=== PATIENT | male | born 1965 | race Two or more races ===

== ENCOUNTER 2020-03-15 13:33 | Emergency (ER) | payer MEDICARE, MEDICAID, SELFPAY ==
[2020-03-15 15:25] VITALS: BP 160/78; PULSE 80; RESP 16; TEMP 36.5; O2SAT 98; BMI 23.0
--- NOTE | 2020-03-15 17:03 | ED.SKABFB ---
HPI - Skin/Abscess/Foreign Bdy General Chief complaint: Skin/Abscess/Foreign Body Stated complaint: Rash Source: patient Mode of arrival: ambulatory Limitations: no limitations History of Present Illness HPI narrative: patient presents to ED for right-sided torso rash that itches and burning for the past 3 days. Patient states no fever or chills. MD complaint: rash Related Data Previous Rx's Medication Instructions Recorded naproxen 500 mg PO BID PRN #20 tab 03/15/20 valacyclovir 1,000 mg PO TID #21 tab 03/15/20 Allergies Allergy/AdvReac Type Severity Reaction Status Date / Time No Known Allergies Allergy Unverified 12/31/19 15:14 [No Known Allergies*] Review of Systems Review of Systems: Yes all other systems are reviewed and are negative Constitutional: Constitutional: Reports as per HPI and Reports no additional constitutional complaints Eyes: Eyes: Reports as per HPI and Reports no additional eye complaints ENT: Reports system reviewed and no additional complaints, except as documented and Reports as per HPI Cardiovascular: Cardiovascular: Reports as per HPI and Reports no additional cardiovascular complaints Respiratory: Respiratory: Reports as per HPI Gastrointestinal: Gastrointestinal: Reports as per HPI and Reports no additional gastrointestinal complaints Genitourinary: Genitourinary: Reports no additional male genitourinary complaints and Reports as per HPI Musculoskeletal: Musculoskeletal: Reports no additional musculoskeletal complaints and Reports as per HPI Neurologic: Reports system reviewed and no additional complaints, except as documented and Reports as per HPI Psychiatric: Psychiatric: Reports no additional psychiatric complaints and Reports as per HPI PMF Past Medical History Medical History No known health problems Social History Social History Alcohol intake: never Smoked in Last 30 Days: No Use of substances other than those prescribed or required for medical reasons: No Advance Directives: No Advance Directives Information Provided: Yes Physical Exam Vital Signs: Vital Signs: Last Vital Signs Temp 97.7 F 03/15/20 15:25 Pulse 80 03/15/20 15:25 Resp 16 03/15/20 15:25 BP 160/78 H 03/15/20 15:25 Pulse Ox 98 03/15/20 15:25 Body Mass Index 23.0 Const: General: cooperative, healthy appearing, comfortable, no acute distress, well developed and alert HENMT: Other: Face, nose, and ears negative for any lesions. Head: Yes normal to inspection and Yes No palpable skull fracture present Eyes: General: appearance normal, both eyes and all related structures Neck: Neck: Yes normal visual inspection, Yes full ROM, Yes no lymphadenopathy, Yes no meningeal signs, Yes trachea midline, Yes supple and No tender Chest: Other: only Right side of upper torso positive for vesicular shingles like lesions Chest palpation & inspection: normal inspection of the chest, normal palpation of entire chest wall and no localized rib tenderness Resp: Effort & Inspection: normal respiratory effort and able to speak in complete sentences Auscultation: clear to auscultation bilaterally Cardio: Jugular venous distension: no JVD Heart sounds: S1 normal heart sound present and S2 normal heart sound present GI: Inspection: Yes normal to inspection and No abdominal wall ecchymosis Palpation (GI): Soft to palpation, not firm, nontender, no guarding and not rigid : General: No CVA tenderness and Yes no CVA tenderness Back/Spine/Pelvis: Other: positive vesiuclar shingle like lesions on Right side of back onlly Back: no CVA tenderness, No CVA tenderness and No back tenderness Skin: Other: shingles Neuro: General: no meningeal signs Course Course Course Narrative: history physical exam indicate shingles. Reevaluation(s) Reevaluation #1: Will discharge with antiviral. Time: 17:07 MDM - Skin/Abscess/Foreign Bdy MDM Narrative Medical decision making narrative: shingles Discharge Plan Discharge Clinical Impression: Shingles Patient Disposition: Home, Self-Care Instructions: Shingles (ED) Additional Instructions: return to the ED for worsening rash, lesions on face, headache, neck stiffness, fever, chills, lesions in ear, or any other concerning symptoms. Prescriptions: New valacyclovir 1 gram tablet 1,000 mg PO TID Qty: 21 RF: 0 naproxen 500 mg tablet 500 mg PO BID PRN (Reason: pain) Qty: 20 RF: 0 Referrals: Marika Ramirez MD [Primary Care Provider] - 2 days (Shingles) Interventions: ED Discharge Assessment Last Done: 03/15/20 17:17 Discharge Date/Time: 03/15/20 17:05 Print Language: Montserratian
== END 2020-03-15 17:05 | disposition home or self-care (01) ==
PROVIDERS: Emergency Provider Emergency Medicine Emergency Medical Services; PCP Internal Medicine
DX: B02.9 Zoster without complications (principal)
CPT/HCPCS: 99283; 99284

== ENCOUNTER 2021-12-27 07:58 | Outpatient (REF) | payer OTHER, SELFPAY ==
[2021-12-27 09:43] LABS: Alanine Aminotransferase 36 U/L (0-40); Albumin Level 4.3 g/dL (3.5-5.0); Alkaline Phosphatase 93 U/L (39-117); Anion Gap 15 (12-20); Aspartate Amino Transferase 21 U/L (5-37); Bilirubin Total 0.5 mg/dL (0.0-1.0); Blood Urea Nitrogen 18 mg/dL (9-16); Calcium 9.4 mg/dL (8.4-10.2); Carbon Dioxide 26 mmol/L (22-29); Chloride 103 mmol/L (96-108); Cholesterol 325 mg/dL; Estimated Glomerular Filt Rate > 60; Glucose Fasting 102 mg/dL (60-99); HDL Cholesterol 42 mg/dL; Potassium 4.4 mmol/L (3.3-5.1); Sodium 140 mmol/L (135-145); Total Protein 7.5 g/dL (6.5-8.0); Triglycerides 536 mg/dL
[2021-12-27 09:51] LABS: Thyroid Stimulating Hormone 0.51 uIU/mL (0.32-4.0); Vitamin D 25-OH Total 32.5 ng/mL (>30)
== END 2021-12-27 07:59 | disposition home or self-care (01) ==
LOC: HO.LAB 07:58
PROVIDERS: PCP Internal Medicine; Visit Provider Internal Medicine
DX: E78.2 Mixed hyperlipidemia (principal); E78.5 Hyperlipidemia, unspecified; E55.9 Vitamin D deficiency, unspecified; E03.9 Hypothyroidism, unspecified
CPT/HCPCS: 36415; 80053; 80061; 82306; 84443

== ENCOUNTER 2023-04-11 12:41 | Outpatient (AMB) | payer MEDICARE, MEDICAID, SELFPAY ==
--- NOTE | 2023-04-11 12:42 | A.OFFPC_ITS ---
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 Reporting Advisor Required: No Accompanied by: Self / Same As Patient Allergies No Known Allergies [No Known Allergies*] Allergy (Verified 04/11/23 12:52) Medication List - Last Reconciled 04/11/23 by Marika Horner MD albuterol sulfate 90 mcg/actuation 2 puffs inhalation Q6H PRN 30 days fenofibrate 54 mg PO DAILY 90 days levothyroxine 75 mcg PO DAILY naproxen 500 mg PO BID PRN 30 days rosuvastatin 20 mg PO DAILY 90 days zolpidem 5 mg PO BEDTIME PRN 30 days Tobacco use date assessed: 04/11/23 Dental Screening Dental Screen Date: 04/11/23 Did you have a dental visit in the last 12 months?: No Did you have a dental problem in the last 6 months where you did not have access to dental care?: No Was dental information given to patient?: Patient has dentist HPI HPI Comments History of Present Illness Details This is a 58-year-old male that comes for his physical exam. Compliant with medications. Has never had a colonoscopy. No family history of colon cancer. No abdominal complaints. Willing to do Cologuard. [facility] Medical History Back pain without radiation Insomnia due to psychological stress Mild asthma Mixed hyperlipidemia Hypothyroidism Surgical History No pertinent past surgical history Family History Mother High blood pressure Father AD (Alzheimer's disease) Social History (Updated 04/11/23 @ 12:55 by Marika Horner MD) Housing: Apartment Alcohol intake: current Alcohol intake frequency: a few times a month Alcohol type: beer and hard liquor Patient Tobacco Use Status: Former Tobacco user e-Cigarette/Vaping Use: Never Used Second Hand Smoke Exposure: No Substance Use Type: Marijuana service: No Current occupational status: disabled Cognitive needs: No Hearing needs: No Vision needs: No Questionnaire Thrive Questionnaire Date Thrive assessed: 12/27/21 RORY-7 AMB Questionnaire RORY-7 Date RORY - 7 assessed: 12/27/21 Source: Developed by Drs. Cabrera Burris, Bety Guerra, Vijay Nagel and colleagues, with an educational stiven from [employer]. Review of Systems Const All systems reviewed & are unremarkable except as noted in HPI and below Eyes Reports no additional complaints, Denies change in vision and Denies other visual disturbances Card Denies chest pain at rest, Denies chest pain with activity, Denies edema, Denies irregular heart rhythm, Denies claudication, Denies dyspnea, Denies dyspnea on exertion, Denies orthopnea, Denies paroxysmal nocturnal dyspnea and Denies slow heart rate Resp Denies cough, Denies dyspnea and Denies dyspnea on exertion GI Denies abdominal pain, Denies change in bowel habits, Denies excessive flatus, Denies nausea and Denies vomiting Denies urinary hesitancy, Denies urinary incontinence and Denies urinary urgency Musc Denies abnormal gait, Denies atrophy, Denies deformity and Denies limited range of motion Skin/Breast Denies bleeding lesions, Denies changing lesions and Denies rash Neuro Denies abnormal gait, Denies behavioral changes, Denies confusion and Denies lack of coordination Psych Denies behavioral changes and Denies confusion Physical exam (Primary Care) Vital Signs: Last Vital Signs BP 112/80 04/11/23 12:43 BMI result Body Mass Index 25.7 Tobacco/Smoking Status: Tobacco use Status Tobacco use date assessed 04/11/23 04/11/23 12:46 Patient Tobacco Use Status Never used Tobacco 04/11/23 12:46 e-Cigarette/Vaping Use Never Used 04/11/23 12:46 Thrive Assessment: Date of Thrive Assessment Date Thrive assessed 12/27/21 04/11/23 12:46 Const General: No confusion Orientation/consciousness: patient oriented x3 and No confusion HENMT Head: Yes normal to inspection, Yes normocephalic and Yes atraumatic Ears: external ears normal Eyes General: appearance normal, both eyes and all related structures Eyelids: Yes eyelids normal Conjunctivae: conjunctivae normal Neck Neck: Yes normal visual inspection and Yes supple Resp Effort & Inspection: normal respiratory effort Auscultation: clear to auscultation bilaterally Cardio Jugular venous distension: no JVD Rate: regular rate Rhythm: regular rhythm Heart sounds: S1 normal heart sound present and S2 normal heart sound present GI Inspection: Yes normal to inspection Palpation (GI): Soft to palpation and nontender Auscultation: normal bowel sounds Skin General skin exam: no rashes or lesions noted Neuro General: patient oriented x3, no focal motor deficits and No confusion Extrem General: Yes full ROM Psych Appearance: grossly normal Office Procedures Flu Questionnaire Does the patient have a severe egg allergy?: No Immunizations flu vacc [id number] 6mos up(PF) 60 mcg(15 mcgx4)/0.5 mL IM syringe Performing Provider: Marika Horner MD Performing Location: [facility] Documented (not given) by: PEGGY Calderón on 04/11/23 12:47 Reason Not Given: Patient Refused Assessment and Plan Assessment & Plan (1) Physical exam: Code(s): Z00.00 - Encounter for general adult medical examination without abnormal findings Plan: Repeat in a year. Orders: Orders Vitamin D 25-OH Total Today E55.9 - Vitamin D deficiency, unspecified Influenza [id number] Immunization Today Z23 - Encounter for immunization Lipid Panel Today E78.5 - Hyperlipidemia, unspecified Comprehensive [place]. Panel Fast Today Z00.00 - Encounter for general adult medical examination without abnormal findings Thyroid Stimulating Hormone Today E03.9 - Hypothyroidism, unspecified Referrals Cologuard Test Z12.11 - Encounter for screening for malignant neoplasm of colon, Z12.12 - Encounter for screening for malignant neoplasm of rectum Medications: Refilled zolpidem 5 mg PO BEDTIME 30 days PRN 30 tabs 0RF sleep Coding Level of Care Code Est Pt Prev Care 40-64y(77471) Diagnoses Physical exam Z00.00 Time Spent (min) 32
[2023-04-11 12:43] VITALS: BP 112/80; BMI 25.7
== END 2023-04-11 13:03 | disposition home or self-care (01) ==
PROVIDERS: Visit Provider Internal Medicine
DX: Z00.00 Encounter for general adult medical examination without abnormal findings (principal); E55.9 Vitamin D deficiency, unspecified
CPT/HCPCS: 99396

== ENCOUNTER 2023-08-08 06:57 | Outpatient (REF) | payer MEDICARE, MEDICAID, SELFPAY ==
[2023-08-08 08:41] LABS: Alanine Aminotransferase 37 U/L (0-40); Albumin Level 4.4 g/dL (3.5-5.0); Alkaline Phosphatase 93 U/L (39-117); Anion Gap 12 (12-20); Aspartate Amino Transferase 20 U/L (5-37); Bilirubin Total 0.5 mg/dL (0.0-1.0); Blood Urea Nitrogen 15 mg/dL (9-16); Calcium 10.2 mg/dL (8.4-10.2); Carbon Dioxide 30 mmol/L (22-29); Chloride 104 mmol/L (96-108); Cholesterol 350 mg/dL (<200); Estimated Glomerular Filt Rate > 60; Glucose Fasting 120 mg/dL (60-99); HDL Cholesterol 42 mg/dL (>40); Sodium 141 mmol/L (135-145); Total Protein 8.1 g/dL (6.5-8.0); Triglycerides 789 mg/dL (<150)
[2023-08-08 08:58] LABS: Thyroid Stimulating Hormone 3.18 uIU/mL (0.32-4.0); Vitamin D 25-OH Total 27.1 ng/mL (>30)
== END 2023-08-08 06:58 | disposition home or self-care (01) ==
LOC: HO.LAB 06:57
PROVIDERS: PCP Internal Medicine; Visit Provider Internal Medicine
DX: Z00.00 Encounter for general adult medical examination without abnormal findings (principal); E03.9 Hypothyroidism, unspecified; E55.9 Vitamin D deficiency, unspecified; E78.5 Hyperlipidemia, unspecified
CPT/HCPCS: 36415; 80053; 80061; 82306; 84443

== ENCOUNTER 2023-08-14 10:30 | Outpatient (AMB) | payer MEDICARE, MEDICAID, SELFPAY ==
[2023-08-14 10:34] VITALS: BP 128/76; BMI 26.2
--- NOTE | 2023-08-14 10:34 | A.OFFPC_ITS ---
Vital Signs 08/14/23 10:34 Height 5 ft 3 in Weight 148 lb BMI 26.2 BP 128/76 Blood Pressure Location Lt brachial Position Sitting Intake Visit Reasons: 4mth f/u Intake Note: Patient here for a 4 month follow up Radiology Receptionist Required: No Accompanied by: Self / Same As Patient Allergies No Known Allergies [No Known Allergies*] Allergy (Verified 08/14/23 10:56) Medication List - Last Reconciled 08/14/23 by Marika Horner MD albuterol sulfate 90 mcg/actuation 2 puffs inhalation Q6H PRN 30 days fenofibrate 54 mg PO DAILY 90 days levothyroxine 75 mcg PO DAILY naproxen 500 mg PO BID PRN 30 days rosuvastatin 20 mg PO DAILY 90 days zolpidem 5 mg PO BEDTIME PRN 30 days Tobacco use date assessed: 08/14/23 Dental Screening Dental Screen Date: 08/14/23 Did you have a dental visit in the last 12 months?: No Did you have a dental problem in the last 6 months where you did not have access to dental care?: No Was dental information given to patient?: Patient has dentist HPI HPI Comments History of Present Illness Details This is a 58-year-old male with hypothyroidism, mixed hyperlipidemia, insomnia and back pain that comes today for follow-up on recent labs. TSH normal. Cholesterol and triglycerides are very elevated and he has not compliant with medications. I will restart him on fenofibrate and increase statin. Insomnia stable with zolpidem. Back pain well controlled with naproxen as needed. He also has impaired glucose tolerance with an elevated fasting blood glucose but denies any polyuria, polydipsia or unintentional weight loss. He has follow a high cholesterol diet and I recommend to make adjustments in his diet. No chest pain or shortness of breath. [facility] Medical History (Updated 08/14/23 @ 12:23 by Marika Horner MD) Back pain without radiation Insomnia due to psychological stress Mild asthma Mixed hyperlipidemia Hypothyroidism Surgical History No pertinent past surgical history Family History Mother High blood pressure Father AD (Alzheimer's disease) Social History Housing: Apartment Alcohol intake: current Alcohol intake frequency: a few times a month Alcohol type: beer and hard liquor Patient Tobacco Use Status: Former Tobacco user e-Cigarette/Vaping Use: Never Used Second Hand Smoke Exposure: No Substance Use Type: Marijuana service: No Current occupational status: disabled Cognitive needs: No Hearing needs: No Vision needs: No Questionnaire PHQ-9 Over the last 2 weeks, how often have you been bothered by any of the following problems? 1. Little interest or pleasure in doing things: not at all 2. Feeling down, depressed, or hopeless: several days 3. Trouble falling or staying asleep, or sleeping too much: not at all 4. Feeling tired or having little energy: not at all 5. Poor appetite or overeating: several days 6. Feeling bad about yourself - or that you are a failure or have let yourself or your family down: not at all 7. Trouble concentrating on things, such as reading the newspaper or watching television: not at all 8. Moving or speaking so slowly that other people could have noticed. Or the opposite - being so fidgety or restless that you have been moving around a lot more than usual: not at all 9. Thoughts that you would be better off or of hurting yourself in some way: not at all Total score: 2 Source: Developed by Drs. Cabrera Burris, Bety Guerra, Vijay Nagel and colleagues, with an educational stiven from [employer]. Thrive Questionnaire Date Thrive assessed: 08/14/23 I am a: Patient What is your living situation today?: I have a steady place to live Within the past 12 months, did the food you bought not last and you didn't have the money to get more?: Never true Within the past 12 months, did you worry whether your food would run out before you got money to buy more?: Never true Do you have trouble paying for medicines?: No Do you have trouble getting transportation to medical appointments?: No Do you have trouble paying your heating and electricity bill?: No Do you have trouble taking care of your child, family member or friend?: No Do you have trouble with day-to-day activities such as bathing, preparing meals, shopping, managing finances, etc.?: No Are you currently unemployed and looking for a job?: No Are you interested in more education?: No Please select the resources that you would like help with: None Currently or been in a relationship where the following occur: no concerns reported THRIVE Score: 0 AUDIT C Alcohol Use Questionnaire (AUDIT-C) 1. How often do you have a drink containing alcohol?: Monthly or less 2. How many drinks containing alcohol do you have on a typical day when you are drinking?: 1 or 2 3. How often do you have six or more drinks on one occasion?: Never Total Score: 1 RORY-7 AMB Questionnaire RORY-7 Date RORY - 7 assessed: 08/14/23 Feeling nervous, anxious, or on edge: 1 = Several days Not being able to stop or control worryin = Not at all Worrying too much about different things: 0 = Not at all Trouble relaxin = Not at all Being so restless that it is hard to sit still: 0 = Not at all Becoming easily annoyed or irritable: 0 = Not at all Feeling afraid as if something awful might happen: 0 = Not at all Total RORY-7 score (0-4 normal; 5-9 mild; 10-14 moderate; 15-21 severe): 1 Source: Developed by Drs. Cabrera Burris, Bety Guerra, Vijay Nagel and colleagues, with an educational stiven from [employer]. Review of Systems Const All systems reviewed & are unremarkable except as noted in HPI and below Eyes Reports no additional complaints, Denies change in vision and Denies other visual disturbances Card Denies chest pain at rest, Denies chest pain with activity, Denies edema, Denies irregular heart rhythm, Denies claudication, Denies dyspnea, Denies dyspnea on exertion, Denies orthopnea, Denies paroxysmal nocturnal dyspnea and Denies slow heart rate Resp Denies cough, Denies dyspnea and Denies dyspnea on exertion GI Denies abdominal pain, Denies change in bowel habits, Denies excessive flatus, Denies nausea and Denies vomiting Denies urinary hesitancy, Denies urinary incontinence and Denies urinary urgency Physical exam (Primary Care) Vital Signs: Last Vital Signs BP 128/76 08/14/23 10:34 BMI result Body Mass Index 26.2 Tobacco/Smoking Status: Tobacco use Status Tobacco use date assessed 08/14/23 08/14/23 10:42 Patient Tobacco Use Status Former Tobacco user 08/14/23 10:42 e-Cigarette/Vaping Use Never Used 08/14/23 10:42 PHQ-9: PHQ-9 Score PHQ-9: Total score 2 08/14/23 10:59 Thrive Assessment: Date of Thrive Assessment Date Thrive assessed 08/14/23 08/14/23 10:42 Currently or been in a relationship where the following occur: no concerns reported Resp Effort & Inspection: normal respiratory effort Auscultation: clear to auscultation bilaterally Cardio Jugular venous distension: no JVD Rate: regular rate Rhythm: regular rhythm Heart sounds: S1 normal heart sound present and S2 normal heart sound present Extrem General: Yes full ROM Assessment and Plan Assessment & Plan (1) Hypothyroidism: Code(s): E03.9 - Hypothyroidism, unspecified Qualifiers: Hypothyroidism type: unspecified Qualified Code(s): E03.9 - Hypothyroidism, unspecified Plan: Continue levothyroxine. Monitor TSH. (2) Mixed hyperlipidemia: Code(s): E78.2 - Mixed hyperlipidemia Plan: Change rosuvastatin 20 mg to atorvastatin 80 mg. Increase fenofibrate. Start low-cholesterol diet. (3) Back pain without radiation: Code(s): M54.9 - Dorsalgia, unspecified Plan: Continue naproxen as needed. (4) Insomnia due to psychological stress: Code(s): F51.02 - Adjustment insomnia Plan: Continue zolpidem as needed. (5) Impaired glucose tolerance: Code(s): R73.02 - Impaired glucose tolerance (oral) Plan: Repeat fasting blood glucose. Start a low-carbohydrate diet. Orders: Orders Lipid Panel 4 Months E78.5 - Hyperlipidemia, unspecified Thyroid Stimulating Hormone 4 Months E03.9 - Hypothyroidism, unspecified Comprehensive [place]. Panel Fast 4 Months E78.2 - Mixed hyperlipidemia Medications: New fenofibrate 160 mg PO DAILY 90 tabs 1RF 90 days E78.2 - Mixed hyperlipidemia atorvastatin 80 mg PO BEDTIME 90 tabs 1RF 90 days E78.2 - Mixed hyperlipidemia Refilled zolpidem 5 mg PO BEDTIME PRN 30 tabs 0RF sleep 30 days naproxen 500 mg PO BID PRN 60 tabs 1RF pain 30 days Discontinued fenofibrate Discontinued Reason: Patient Completed Course 54 mg PO DAILY 90 days 90 tabs 2RF Coding Level of Care Code Est Pt Level 4 (44868) Diagnoses Hypothyroidism, unspecified type E03.9 Hypothyroidism type: unspecified Mixed hyperlipidemia E78.2 Back pain without radiation M54.9 Insomnia due to psychological stress F51.02 Impaired glucose tolerance R73.02 Time Spent (min) 25
== END 2023-08-14 11:08 | disposition home or self-care (01) ==
LOC: HO.HMGH 10:30
PROVIDERS: PCP Internal Medicine; Visit Provider Internal Medicine
DX: E03.9 Hypothyroidism, unspecified (principal); E78.2 Mixed hyperlipidemia; M54.9 Dorsalgia, unspecified; F51.02 Adjustment insomnia; R73.02 Impaired glucose tolerance (oral)
CPT/HCPCS: 99214

== ENCOUNTER 2023-12-31 10:02 | Outpatient (AMB) | payer MEDICARE, MEDICAID, SELFPAY ==
--- NOTE | 2023-12-31 10:05 | A.OFFPC_ITS ---
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 Required: No Accompanied by: Self / Same As Patient Allergies No Known Allergies [No Known Allergies*] Allergy (Verified 12/31/23 10:14) Medication List - Last Reconciled 12/31/23 by Marika Horner MD albuterol sulfate 90 mcg/actuation 2 puffs inhalation Q6H PRN 30 days levothyroxine 75 mcg PO DAILY naproxen 500 mg PO BID PRN 30 days zolpidem 5 mg PO BEDTIME PRN 30 days Tobacco use date assessed: 08/14/23 Dental Screening Dental Screen Date: 08/14/23 HPI HPI Comments History of Present Illness Details This is a 58-year-old male with hypothyroidism, mild asthma, impaired glucose tolerance and insomnia that comes today for follow-up on his conditions. TSH will be order to be done today. He use rescue inhaler less than once a month. Has elevated fasting blood glucose but denies any polyuria, polydipsia or unintentional weight loss. Insomnia stable with zolpidem as needed. Patient aware that zolpidem can cause addiction and sedation. No chest pain or shortness on breath. [facility] Medical History Back pain without radiation Insomnia due to psychological stress Mild asthma Mixed hyperlipidemia Hypothyroidism Surgical History No pertinent past surgical history Family History Mother High blood pressure Father AD (Alzheimer's disease) Social History Housing: Apartment Alcohol intake: current Alcohol intake frequency: a few times a month Alcohol type: beer and hard liquor Patient Tobacco Use Status: Former Tobacco user e-Cigarette/Vaping Use: Never Used Second Hand Smoke Exposure: No Substance Use Type: Marijuana service: No Current occupational status: disabled Cognitive needs: No Hearing needs: No Vision needs: No Questionnaire PHQ-9 Over the last 2 weeks, how often have you been bothered by any of the following problems? 1. Little interest or pleasure in doing things: not at all 2. Feeling down, depressed, or hopeless: several days 3. Trouble falling or staying asleep, or sleeping too much: not at all 4. Feeling tired or having little energy: not at all 5. Poor appetite or overeating: several days 6. Feeling bad about yourself - or that you are a failure or have let yourself or your family down: not at all 7. Trouble concentrating on things, such as reading the newspaper or watching television: not at all 8. Moving or speaking so slowly that other people could have noticed. Or the opposite - being so fidgety or restless that you have been moving around a lot more than usual: not at all 9. Thoughts that you would be better off or of hurting yourself in some way: not at all Total score: 2 Depression Screening Interpretation: Negative Depression Screening Done: Yes 22350 - PHQ-9 Billing: Yes Source: Developed by Drs. Cabrera Burris, Bety Guerra, Vijay Nagel and colleagues, with an educational stiven from [employer]. Thrive Questionnaire Date Thrive assessed: 12/31/23 I am a: Patient What is your living situation today?: I have a steady place to live Within the past 12 months, did the food you bought not last and you didn't have the money to get more?: Never true Within the past 12 months, did you worry whether your food would run out before you got money to buy more?: Never true Do you have trouble paying for medicines?: No Do you have trouble getting transportation to medical appointments?: No Do you have trouble paying your heating and electricity bill?: No Do you have trouble taking care of your child, family member or friend?: No Do you have trouble with day-to-day activities such as bathing, preparing meals, shopping, managing finances, etc.?: No Are you currently unemployed and looking for a job?: No Are you interested in more education?: No Please select the resources that you would like help with: None Currently or been in a relationship where the following occur: No concerns reported THRIVE Score: 0 AUDIT C Alcohol Use Questionnaire (AUDIT-C) 1. How often do you have a drink containing alcohol?: Monthly or less 2. How many drinks containing alcohol do you have on a typical day when you are drinking?: 1 or 2 3. How often do you have six or more drinks on one occasion?: Never Total Score: 1 Score Reviewed/Action Taken: No RORY-7 AMB Questionnaire RORY-7 Date RORY - 7 assessed: 12/31/23 Feeling nervous, anxious, or on edge: 1 = Several days Not being able to stop or control worryin = Not at all Worrying too much about different things: 0 = Not at all Trouble relaxin = Not at all Being so restless that it is hard to sit still: 0 = Not at all Becoming easily annoyed or irritable: 0 = Not at all Feeling afraid as if something awful might happen: 0 = Not at all Total RORY-7 score (0-4 normal; 5-9 mild; 10-14 moderate; 15-21 severe): 1 Source: Developed by Drs. Cabrera Burris, Bety Guerra, Vijay Nagel and colleagues, with an educational stiven from [employer]. RORY-7 Assessment Billing RORY-7 Assessment Tool: RORY-7 Assessment 30368 Review of Systems Const All systems reviewed & are unremarkable except as noted in HPI and below Card Denies chest pain at rest, Denies chest pain with activity, Denies edema, Denies irregular heart rhythm, Denies claudication, Denies dyspnea, Denies dyspnea on exertion, Denies orthopnea, Denies paroxysmal nocturnal dyspnea and Denies slow heart rate Resp Denies cough, Denies dyspnea and Denies dyspnea on exertion GI Denies abdominal pain, Denies change in bowel habits, Denies excessive flatus, Denies nausea and Denies vomiting Physical exam (Primary Care) Vital Signs: Last Vital Signs BP 136/82 12/31/23 10:08 BMI result Body Mass Index 26.0 Tobacco/Smoking Status: Tobacco use Status Tobacco use date assessed 08/14/23 12/31/23 10:12 Patient Tobacco Use Status Former Tobacco user 12/31/23 10:12 e-Cigarette/Vaping Use Never Used 12/31/23 10:12 PHQ-9: PHQ-9 Score PHQ-9: Total score 2 12/31/23 10:12 Depression Screening Interpretation: Negative Thrive Assessment: Date of Thrive Assessment Date Thrive assessed 12/31/23 12/31/23 10:12 Currently or been in a relationship where the following occur: No concerns reported Resp Effort & Inspection: normal respiratory effort Auscultation: clear to auscultation bilaterally Cardio Jugular venous distension: no JVD Rate: regular rate Rhythm: regular rhythm Heart sounds: S1 normal heart sound present and S2 normal heart sound present Extrem General: Yes full ROM Assessment and Plan Assessment & Plan (1) Hypothyroidism: Code(s): E03.9 - Hypothyroidism, unspecified Qualifiers: Hypothyroidism type: unspecified Qualified Code(s): E03.9 - Hypothyroidism, unspecified Plan: Continue levothyroxine. Monitor TSH. (2) Mild asthma: Code(s): J45.909 - Unspecified asthma, uncomplicated Qualifiers: Asthma persistence: persistent Asthma complication type: uncomplicated Qualified Code(s): J45.30 - Mild persistent asthma, uncomplicated Plan: Use rescue inhaler as needed. (3) Insomnia due to psychological stress: Code(s): F51.02 - Adjustment insomnia Plan: Continue zolpidem as needed. (4) Impaired glucose tolerance: Code(s): R73.02 - Impaired glucose tolerance (oral) Plan: Advised to follow a low-carbohydrate diet. Orders: Orders Thyroid Stimulating Hormone Today E03.9 - Hypothyroidism, unspecified Coding Level of Care Code Est Pt Level 4 (46895) Complex EM visit Add On G2211 Diagnoses Hypothyroidism, unspecified type E03.9 Hypothyroidism type: unspecified Mild persistent asthma without complication J45.30 Asthma persistence: persistent Asthma complication type: uncomplicated Insomnia due to psychological stress F51.02 Impaired glucose tolerance R73.02 Additional Codes RORY-7 Assessment Billing - RORY-7 Assessment Tool: RORY-7 Assessment 38013 ([id number]) Time Spent (min) 20
[2023-12-31 10:08] VITALS: BP 136/82; BMI 26.0
== END 2023-12-31 10:26 | disposition home or self-care (01) ==
PROVIDERS: PCP Internal Medicine; Visit Provider Internal Medicine
DX: E03.9 Hypothyroidism, unspecified (principal); J45.30 Mild persistent asthma, uncomplicated; F51.02 Adjustment insomnia; R73.02 Impaired glucose tolerance (oral)

== ENCOUNTER → 2023-12-31 10:02 | Outpatient (BNVA) | payer MEDICARE, MEDICAID, SELFPAY | PROVIDERS: PCP Internal Medicine; Visit Provider Internal Medicine | DX: E03.9 Hypothyroidism, unspecified (principal); J45.30 Mild persistent asthma, uncomplicated; F51.02 Adjustment insomnia; R73.02 Impaired glucose tolerance (oral) | CPT/HCPCS: 96127; 99212 ==

== ENCOUNTER 2024-05-11 23:35 | Emergency (ER) | payer MEDICARE, MEDICAID, SELFPAY ==
--- NOTE | ~2024-05-11 | XR_ITS ---
CLINICAL HISTORY: asthma sob EXAM: Two views of the chest. COMPARISON: None FINDINGS: Normal cardiac, mediastinal, and hilar contours. Normal heart size. No pleural effusion or pneumothorax. Lungs are clear. No acute bone finding. IMPRESSION: 1. No acute cardiopulmonary process demonstrated. This document has been electronically signed by: Brian Kruger MD on 05/12/2024 00:06:32
[2024-05-11 23:36] VITALS: BP 163/91; PULSE 85; RESP 20; TEMP 36.6; O2SAT 97; BMI 24.1
[2024-05-12 00:26] LABS: Influenza A PCR POSITIVE (Negative); Influenza B PCR NEGATIVE (Negative); Resp Syncy Virus RNA Qual PCR NEGATIVE (Negative); SARS COV2 PCR INHOUSE NEGATIVE (Negative)
--- NOTE | 2024-05-12 03:08 | ED.ASTHMA ---
HPI - Asthma General Chief Complaint: Asthma Stated Complaint: SoB, asthmatic Time Seen by Provider: 05/12/24 02:48 Source: patient Mode of arrival: ambulatory Limitations: no limitations History of Present Illness ED Provider: DR. Yu HPI Narrative: 59-year-old male history of asthma came in for evaluation of SOB and coughing patient recently was diagnosed with the flu, returned today for increased shortness of breath and wheezing with coughing, no fever, no chills. Related Data Previous Rx's ?Medication ?Instructions ?Recorded naproxen 500 mg tablet 500 mg PO BID PRN pain 30 days #60 08/14/23 tabs levothyroxine 75 mcg tablet 75 mcg PO DAILY #90 tabs 02/26/24 zolpidem 5 mg tablet 5 mg PO BEDTIME PRN sleep 30 days 05/05/24 #30 tabs albuterol sulfate 90 mcg/actuation 2 puff inhalation Q6H PRN 05/06/24 aerosol inhaler shortness of breath or wheezing 30 days #6.7 grams prednisone 20 mg tablet 20 mg PO BID #10 tabs 05/12/24 Allergies Allergy/AdvReac Type Severity Reaction Status Date / Time No Known Allergies Allergy Verified 05/11/24 23:39 [No Known Allergies*] Review of Systems Review of Systems: All other systems are reviewed and are negative Constitutional: Reports as per HPI and Reports no additional constitutional complaints Eyes: Reports as per HPI and Reports no additional eye complaints Reports system reviewed and no additional complaints, except as documented Cardiovascular: Reports as per HPI and Reports no additional cardiovascular complaints Respiratory: Reports as per HPI and Reports no additional respiratory complaints Gastrointestinal: Reports as per HPI and Reports no additional gastrointestinal complaints Genitourinary: Reports no additional female genitourinary complaints Musculoskeletal: Reports no additional musculoskeletal complaints Skin/Breast: Reports system reviewed and no additional complaints, except as docu Psychiatric: Reports no additional psychiatric complaints Endocrine: Reports no additional endocrine complaints Hematologic/Lymphatic: Reports no additional hematologic/lymphatic complaints Allergic/Immunologic: Reports no additional allergic/immunologic complaints Reports system reviewed and no additional complaints, except as documented and Reports Abnormal speech present [facility] Past Medical History Medical History Back pain without radiation Insomnia due to psychological stress Mild asthma Mixed hyperlipidemia Hypothyroidism Surgical History No pertinent past surgical history Family History Family History Mother High blood pressure Father AD (Alzheimer's disease) Social History Social History Housing: Apartment Alcohol intake: current Alcohol intake frequency: a few times a month Alcohol type: beer and hard liquor Patient Tobacco Use Status: Former Tobacco user e-Cigarette/Vaping Use: Never Used Second Hand Smoke Exposure: No Substance Use Type: Marijuana Advance Directives: No Advance Directives Information Provided: Yes Do you have a plan to hurt others: No Plan service: No Current occupational status: disabled Cognitive needs: No Hearing needs: No Vision needs: No Physical Exam Vital Signs: Vital Signs: Last Vital Signs Temp 97.9 F 05/11/24 23:36 Pulse 85 05/11/24 23:36 Resp 20 05/11/24 23:36 BP 163/91 H 05/11/24 23:36 Pulse Ox 97 05/11/24 23:36 O2 Del Method Room Air 05/11/24 23:36 BMI result Body Mass Index 24.1 Vital signs have been reviewed and appear to be correct. Blood pressure elevated. Heart rate normal. Respiratory rate normal. Temperature normal. Oxygen saturation normal. Appearance: Alert. Oriented X3. No acute distress. Head: Normal external exam. Normocephalic. Atraumatic. No Mendez signs noted. No raccoon eyes noted Eyes: PERRLA. EOMI. Conjunctiva and sclera normal. Eyelids normal. ENT: TM's Normal. Pharynx normal. Uvula midline. Moist mucous membranes. No trismus noted. No drooling noted. No muffled voice noted. Neck: Normal inspection. Neck supple. FROM. No adenopathy. Thyroid Normal. No meningeal signs. No neck mass noted. CVS: Normal heart rate and rhythm. Heart sound normal. No murmurs noted. Pulses normal throughout. Respiratory: No respiratory distress. Painless inspiration. Breath sounds normal. No wheezes/rales/rhonchi noted. Chest nontender. No accessory muscle usage noted or decreased air movement noted. Abdomen: Soft and nontender. Bowel sounds normal in all 4 quadrants. No distention noted. No organomegaly noted. No visible injury noted. Back: No CVA tenderness. Full range of motion noted. Skin: Skin warm and dry. Normal skin color. Normal skin turgor. No rashes/lesions/lacerations noted. Extremities: No lower extremity edema. Extremities exhibit normal range of motion. Extremities nontender. Neuro: Oriented X 3. Cranial nerve exam: II-XII are grossly intact No motor deficit. No sensory deficit. Reflexes normal. Course Reevaluation(s) Reevaluation #1: Viral bronchitis and wheezing will add prednisone and patient will use his own albuterol inhaler. Patient hemodynamically stable, VSS, no respiratory distress. Time: 03:12 Medical Decision Making Differential Diagnosis Differential Diagnoses: The differential diagnosis associated with the presentation includes ( Pneumonia, pneumothorax, pleural effusion, bronchitis, asthma exacerbation, viral bronchitis.) Admission/Observation Consideration of admission/observation: Escalation of care including admission/observation considered Lab Data MDM Lab Attestation statement: I reviewed the patient's lab results. Labs: Lab Results 05/11/24 Range/Units 23:44 Influenza Type A (PCR) POSITIVE A (Negative) Influenza Type B (PCR) NEGATIVE (Negative) RSV RNA Qual (PCR) NEGATIVE (Negative) SARS-CoV-2 RNA (RT-PCR) NEGATIVE (Negative) Independent Interpretation I performed an independent interpretation of an: Plain X-Ray ( Chest: No acute intrathoracic pathology.) Radiology Impression Discussion of test interpretation with radiology: I have reviewed the radiologist's reading. Discharge Plan Discharge Clinical Impression: Asthma with acute exacerbation, Bronchitis Patient Disposition: Home, Self-Care Instructions: Asthma (ED) Additional Instructions: take the prednisone as prescribed. Use your albuterol inhaler 2 puffs every 4-6 hours if needed for wheezing or shortness of breath. Prescriptions: New prednisone 20 mg tablet 20 mg PO BID Qty: 10 0RF No Action levothyroxine 75 mcg tablet 75 mcg PO DAILY Qty: 90 0RF zolpidem 5 mg tablet 5 mg PO BEDTIME PRN (Reason: sleep) 30 Days Qty: 30 0RF albuterol sulfate 90 mcg/actuation HFA aerosol inhaler 2 puff inhalation Q6H PRN (Reason: shortness of breath or wheezing) 30 Days Qty: 6.7 1RF naproxen 500 mg tablet 500 mg PO BID PRN (Reason: pain) 30 Days Qty: 60 1RF Referrals: Marika Ramirez MD [Primary Care Provider] - Print Language: Barbadian
[2024-05-12 03:30] VITALS: BP 163/91; PULSE 85; RESP 20; TEMP 36.6; O2SAT 97
[2024-05-12] MEDS: predniSONE 20 MG TABLET 40 MG PO (03:42)
== END 2024-05-12 04:16 | disposition home or self-care (01) ==
PROVIDERS: Emergency Provider Emergency Medicine; PCP Internal Medicine
DX: J10.1 Influenza due to other identified influenza virus with other respiratory manifestations (principal); J45.901 Unspecified asthma with (acute) exacerbation; R06.02 Shortness of breath; Z87.891 Personal history of nicotine dependence; F12.90 Cannabis use, unspecified, uncomplicated; Z03.818 Encounter for observation for suspected exposure to other biological agents ruled out
CPT/HCPCS: 0241U; 71046; 99283

== ENCOUNTER → 2024-05-11 23:48 | Outpatient (BNV) | payer MEDICARE, MEDICAID, SELFPAY | PROVIDERS: Visit Provider Radiology Diagnostic Radiology | DX: R06.02 Shortness of breath (principal) | CPT/HCPCS: 71046 ==

== ENCOUNTER 2024-08-31 10:51 | Outpatient (AMB) | payer MEDICARE, MEDICAID, SELFPAY ==
[2024-08-31 10:56] VITALS: BP 146/90; BMI 24.3
--- NOTE | 2024-08-31 10:56 | AM.OFFVISMDC ---
Intake Vital Signs 08/31/24 10:56 Height 5 ft 5 in Weight 146 lb BMI 24.3 BP 146/90 H Blood Pressure Location Lt brachial Position Sitting Intake Visit Reasons: AWV Intake Note: Patient here for an annual wellness visit [place] Aide Required: No Accompanied by: Self / Same As Patient Allergies No Known Allergies [No Known Allergies*] Allergy (Verified 08/31/24 11:16) Medication List - Last Reconciled 08/31/24 by Marika Horner MD albuterol sulfate 90 mcg/actuation 2 puffs inhalation Q6H PRN 30 days levothyroxine 75 mcg PO DAILY naproxen 500 mg PO BID PRN 30 days zolpidem 5 mg PO BEDTIME PRN 30 days HPI HPI Comments History of Present Illness Details The patient is a 59-year-old male presenting for a Medicare wellness exam. He extensively discusses his history of receiving vaccinations, stating he has had a tetanus vaccination in the past but is unable to recall a recent colonoscopy, instead showing preference for a colonoscopy over Cologuard screening due to comfort and familiarity. The patient currently manages his essential hypertension without medication but reports recent levels suggest increased blood pressure control might be required. He has identified his mood as low with an established depression diagnosis corroborated by a recorded PHQ-9 score of 11, linking some emotional difficulties to his child's 15 years ago. He struggles with feelings of air hunger under stress, which may relate to his emotional state. His daily regimen includes levothyroxine, naproxen, and zolpidem, yet lacks any antihypertensives. He confirms he maintains independence in financial matters. - Review of immunization history confirming tetanus vaccination received years ago. - Scheduled colonoscopy for colorectal cancer screening due to lack of prior procedure. - Monitoring of blood pressure with follow-up planned in three weeks. - Reviewed depression-related risk scoring (PHQ-9 score of 11). [facility] Medical History (Updated 08/31/24 @ 12:49 by Marika Horner MD) Back pain without radiation Insomnia due to psychological stress Mild asthma Mixed hyperlipidemia Hypothyroidism Surgical History No pertinent past surgical history Family History Mother High blood pressure Father AD (Alzheimer's disease) Social History Housing: Apartment Alcohol intake: current Alcohol intake frequency: a few times a month Alcohol type: beer and hard liquor Patient Tobacco Use Status: Former Tobacco user e-Cigarette/Vaping Use: Never Used Second Hand Smoke Exposure: No Substance Use Type: Marijuana service: No Current occupational status: disabled Cognitive needs: No Hearing needs: No Vision needs: No Questionnaire Medicare Wellness Checkup What gender do you identify with?: male During the past 4 weeks, how much have you been bothered by emotional problems such as feeling anxious, depressed, irritable, sad or downhearted, and blue?: moderately During the past 4 weeks, has your physical & emotional health limited your social activities with family, friends, neighbors, or groups?: slightly During the past 4 weeks, how much bodily pain have you generally had?: mild pain During the past 4 weeks, was someone available to help you if you needed & wanted help?: yes, a little During the past 4 weeks, what was the hardest physical activity you could do for at least 2 minutes?: moderate Can you get to places out of walking distance without help? (For eg., can you travel alone on buses, taxis or drive your car?): Yes Can you go shopping for groceries or clothes without someone's help?: Yes Can you prepare your own meals?: No Can you do your housework without help?: No Because of any health problems, do you need the help of another person with your personal care needs such as eating, bathing, dressing or getting around the house?: No Can you handle your own money without help?: Yes During the past 4 weeks, how would you rate your health in general?: fair During the past 4 weeks how have things been going for you?: good & bad parts about equal Are you having difficulties driving your car?: no Do you always fasten your seat belt when you are in a car?: yes, usually During past 4 weeks, have you been bothered by the following: never: Falling or dizzy when standing up, Sexual problems?, Trouble eating well?, Teeth or denture problems? and Problems using the telephone? and sometimes: Tiredness or fatigue? Have you fallen 2 or more times in the past year?: No Are you afraid of falling?: No Are you a smoker?: no During the past 4 weeks, how many drinks of wine, beer, or other alcoholic beverages did you have?: 1 drink or less per week Do you exercise for about 20 minutes 3 or more times a week?: no, I usually do not exercise this much Have you been given information to help with the following?: no: Hazards in your house that might hurt you? and no: Keeping track of your medications? How often do you have trouble taking medicines the way you have been told to take them?: I always take medicine as prescribed How confident are you that you can control & manage most of your health problems?: somewhat confident What is your race?: or origin or descent Mini Mental State Exam (MMSE) Orientation What is the (year) (season) (date) (day) (month)?: year, season, date, day and month Where are we (state) (county) (town or city) (hospital) (floor)?: state, county, town or city, hospital/clinic and floor Registration Name of 3 unrelated objects clearly and slowly, then ask patient to repeat all 3 of them. (1st repeat determines score. Make sure they can repeat all three): object 1, object 2 and object 3 Attention & Calculation (CHOOSE ONE) Spell WORLD backwards (DLROW): 5 letters Recall Ask patient to repeat the 3 items from question #3.: object 1, object 2 and object 3 Language Show patient a wristwatch & ask what it is. Repeat for pencil.: watch and pencil Ask the patient to repeat the phrase 'No ifs, ands, or buts' after you.: correct Ask the patient to 'take a piece of paper with their right hand' 'fold paper in half' 'place paper on floor': take paper in right hand, fold paper in half and place paper on floor Print the sentence 'CLOSE YOUR EYES' on a piece. If patient actually closes eyes then score.: followed written direction Give patient a blank piece of paper & ask to write a sentence. Score if it contains a noun & verb.: sentence contains subject and verb Score Score: 29 Activity of Daily Living Bathing - sponge bath, tub bath or shower: receives no assistance (gets in/out by self, if usual bathing means Dressing - getting clothes from closets & drawers, including inner/outer garments & fasteners.: gets clothes & gets completely dressed without help Toileting - going to the 'toilet room' for urine/bowel elimination & cleaning self/arranging clothes: goes to toilet room, cleans self, arranges clothes without help Transfer: moves in & out of bed and chair without help (may use support object) Continence: controls urination/bowel movements completely by self Feeding: feeds self without help Total Score: 0 Information obtained from: patient Using telephone: independent Traveling: independent Shopping: independent Preparing meals: independent Housework: independent Taking medicine: independent Managing money: independent PHQ-9 Over the last 2 weeks, how often have you been bothered by any of the following problems? 1. Little interest or pleasure in doing things: more than half the days 2. Feeling down, depressed, or hopeless: more than half the days 3. Trouble falling or staying asleep, or sleeping too much: nearly every day 4. Feeling tired or having little energy: more than half the days 5. Poor appetite or overeating: not at all 6. Feeling bad about yourself - or that you are a failure or have let yourself or your family down: several days 7. Trouble concentrating on things, such as reading the newspaper or watching television: several days 8. Moving or speaking so slowly that other people could have noticed. Or the opposite - being so fidgety or restless that you have been moving around a lot more than usual: not at all 9. Thoughts that you would be better off or of hurting yourself in some way: not at all Total score: 11 Depression Screening Interpretation: Positive Depression Screening Follow-up: Existing condition and Follow-up Visit Requested Depression Screening Done: Yes 88958 - PHQ-9 Billing: Yes Source: Developed by Drs. Cabrera Burris, Bety Guerra, Vijay Nagel and colleagues, with an educational stiven from [employer]. AUDIT C Alcohol Use Questionnaire (AUDIT-C) 1. How often do you have a drink containing alcohol?: Monthly or less 2. How many drinks containing alcohol do you have on a typical day when you are drinking?: 1 or 2 3. How often do you have six or more drinks on one occasion?: Never Total Score: 1 Score Reviewed/Action Taken: No RORY-7 AMB Questionnaire RORY-7 Date RORY - 7 assessed: 08/31/24 Feeling nervous, anxious, or on edge: 2 = More than half the days Not being able to stop or control worryin = Not at all Worrying too much about different things: 2 = More than half the days Trouble relaxin = Several days Being so restless that it is hard to sit still: 1 = Several days Becoming easily annoyed or irritable: 0 = Not at all Feeling afraid as if something awful might happen: 1 = Several days Total RORY-7 score (0-4 normal; 5-9 mild; 10-14 moderate; 15-21 severe): 7 Source: Developed by Drs. Cabrera Burris, Bety Guerra, Vijay Nagel and colleagues, with an educational stiven from [employer]. RORY-7 Assessment Billing RORY-7 Assessment Tool: RORY-7 Assessment 34713 Thrive Questionnaire Date Thrive assessed: 08/31/24 I am a: Patient What is your living situation today?: I have a steady place to live THRIVE Score: 0 Review of Systems Const All systems reviewed & are unremarkable except as noted in HPI and below Card Denies chest pain at rest, Denies chest pain with activity, Denies edema, Denies irregular heart rhythm, Denies claudication, Denies dyspnea, Denies dyspnea on exertion, Denies orthopnea, Denies paroxysmal nocturnal dyspnea and Denies slow heart rate Resp Denies cough, Denies dyspnea and Denies dyspnea on exertion GI Denies abdominal pain, Denies change in bowel habits, Denies excessive flatus, Denies nausea and Denies vomiting Physical Exam Vital Signs: Last Vital Signs BP 146/90 H 08/31/24 10:56 BMI result Body Mass Index 24.3 Resp Effort & Inspection: normal respiratory effort Auscultation: clear to auscultation bilaterally Cardio Jugular venous distension: no JVD Rate: regular rate Rhythm: regular rhythm Heart sounds: S1 normal heart sound present and S2 normal heart sound present Extrem General: Yes full ROM Assessment & Plan Assessment & Plan (1) Encounter for Medicare annual wellness exam: Code(s): Z00.00 - Encounter for general adult medical examination without abnormal findings (2) Mild major depression: Code(s): F32.0 - Major depressive disorder, single episode, mild Plan The management course involves addressing essential hypertension with blood pressure monitoring and reassessment in three weeks, while the incorporation of antihypertensive medication might be necessary. The patient acknowledged feeling low mood and a PHQ-9 score of 11, for which we talked about his current strategies addressing depression and the potential merit of adding resources like therapy or medication adjustments in future reviews. For preventive care, the patient will have a scheduled colonoscopy for cancer screening. We discussed these plans in detail, obtaining his agreement and consent with full comprehension of the intended health management strategies. Continuing regular follow-ups for depression and blood pressure regulation are essential. Patient was informed and verbally consented to the use of an ambient scribe for clinic note documentation during this visit. We discussed the patient?s diagnoses and health management strategies, focusing particularly on blood pressure control and addressing depression. The patient understands the importance of revisiting his blood pressure readings and agreed to a follow-up in three weeks. For depression, I discussed that strategies such as therapy should be considered if symptoms persist or worsen. We reviewed the importance of preventive measures such as a colonoscopy and ensuring routine health checks. I provided reassurance regarding the streamlined process of these procedures and obtained informed consent for these plans, explaining benefits, possible outcomes, and importance of regular monitoring and follow-up visits. Orders: Referrals Open Access Screening Colonoscopy Referral Z12.12 - Encounter for screening for malignant neoplasm of rectum Medications: New losartan 25 mg PO DAILY 90 tabs 3RF 90 days I10 - Essential (primary) hypertension Patient Instructions: - Monitor blood pressure and return for reassessment in three weeks. - Schedule and prepare for a colonoscopy. - Continue current medications as prescribed. - Follow up on any changes in mood or depressive symptoms, seeking help if needed. - Return for routine follow-up visits to monitor and adjust management of health conditions as necessary. Quality Reporting (2019) Depression/Bipolar (159/160/161/177) PHQ-9: Total score: 11 Coding Level of Care Code Medicare First (G0438) Diagnoses Encounter for Medicare annual wellness exam Z00.00 Mild major depression F32.0 Additional Codes RORY-7 Assessment Billing - RORY-7 Assessment Tool: RORY-7 Assessment 20283 ([id number]) PHQ-9 - 54612 - PHQ-9 Billing: Yes ([id number]) Time Spent (min) 35
== END 2024-08-31 11:33 | disposition home or self-care (01) ==
LOC: HO.HMCH 10:51
PROVIDERS: PCP Internal Medicine; Visit Provider Internal Medicine
DX: Z00.00 Encounter for general adult medical examination without abnormal findings (principal); F32.0 Major depressive disorder, single episode, mild

== ENCOUNTER → 2024-08-31 10:51 | Outpatient (BNVA) | payer MEDICARE, MEDICAID, SELFPAY | PROVIDERS: PCP Internal Medicine; Visit Provider Internal Medicine | DX: Z00.00 Encounter for general adult medical examination without abnormal findings (principal); F32.0 Major depressive disorder, single episode, mild | CPT/HCPCS: 96127 ==

== ENCOUNTER 2025-01-08 08:00 | Outpatient (REF) | payer MEDICARE, MEDICAID, SELFPAY ==
[2025-01-08 10:30] LABS: Alanine Aminotransferase 43 U/L (0-40); Albumin Level 4.5 g/dL (3.5-5.0); Alkaline Phosphatase 92 U/L (39-117); Anion Gap 11 (12-20); Aspartate Amino Transferase 39 U/L (5-37); Blood Urea Nitrogen 17 mg/dL (9-16); Calcium 9.5 mg/dL (8.4-10.2); Carbon Dioxide 30 mmol/L (22-29); Chloride 106 mmol/L (96-108); Cholesterol 340 mg/dL (<200); Estimated Glomerular Filt Rate > 60; HDL Cholesterol 39 mg/dL (>40); Potassium 4.8 mmol/L (3.3-5.1); Sodium 142 mmol/L (135-145); Total Protein 7.6 g/dL (6.5-8.0); Triglycerides 580 mg/dL (<150)
[2025-01-08 10:48] LABS: Thyroid Stimulating Hormone 5.23 uIU/mL (0.32-4.0)
== END 2025-01-08 08:01 | disposition home or self-care (01) ==
LOC: HO.LAB 08:00
PROVIDERS: PCP Internal Medicine; Visit Provider Internal Medicine
DX: R73.02 Impaired glucose tolerance (oral) (principal); E03.9 Hypothyroidism, unspecified; E78.5 Hyperlipidemia, unspecified
CPT/HCPCS: 36415; 80053; 80061; 84443